=== PATIENT | female | born 1945 | race Caucasian/White ===

== ENCOUNTER → 2018-10-13 | Outpatient (CLI) | payer MEDICARE ==
--- NOTE | 2018-10-16 15:13 | DEXA ---
AP SPINE L1 - L4 0.955 -1.9 -0.2 LT FEMUR TOTAL 0.796 -1.7 0.1 LT NECK 0.749 -2.1 -0.2 RT FEMUR TOTAL 0.742 -2.1 -0.4 RT NECK 0.761 -2.0 -0.1 TOTAL BODY TOTAL OTHER COMMENTS: There is low bone density of the spine and hips. The density of the spine is increased 11.3% since the initial exam on 10/20/2001. The spine density has increased 2.2% since the most recent exam on 12/27/2014. The density of the left hip has decreased 0.7% since the initial exam on 10/20/2001. The density of the left hip has increased 2.1% since the most recent exam on 12/27/2014. The density of the right hip has decreased 2.8% since the initial exam on 10/20/2001. The density of the right hip has increased 0.5% since the most recent exam on 12/27/2014. FOLLOW-UP: Recommendation for the next bone density exam: 2 years. VANESAD
== END ==
LOC: M WHC 10:56
PROVIDERS: ATTEND Nurse Practitioner Adult Health
DX: Z13.820 Encounter for screening for osteoporosis (principal); Z78.0 Asymptomatic menopausal state